=== PATIENT | male | born 1960 | race Caucasian/White ===

== ENCOUNTER 2020-12-09 07:38 | Day surgery (SDC) | payer BC ==
[2020-12-04 12:24] VITALS: BMI 29.9
[~2020-12-09 07:38] MED LIST: DEXAMETHASONE SOD PHOSPHATE 4 MG/ML 1 ML VIAL IV ONE; DEXAMETHASONE SOD PHOSPHATE 4 MG/ML 1 ML VIAL IV PRN; FAMOTIDINE 20 MG/2 ML VIAL IV PRN; HYDROmorphone 0.5 MG/0.5 ML SYRINGE IVP PRN; LACTATED RINGERS 1,000 ML IV SCH; LIDOCAINE 1% (10MG/ML) FOR IV START INTRADERMA PRN; MIDAZOLAM 2 MG/2 ML VIAL IV PRN; ONDANSETRON 4 MG/2 ML VIAL IVP ONE; ONDANSETRON 4 MG/2 ML VIAL IVP PRN
[2020-12-09] MEDS: OXYMETAZOLINE 0.05% NASL SPRAY 1 SPRAY BOTTLE EA NOSTRIL PRN ×6 (08:05→08:25)
[2020-12-09] MEDS ORDERED: fentaNYL (PF) 50 MCG/ML 2 ML AMP ONE (09:14)
[2020-12-09] MEDS ORDERED: MIDAZOLAM 2 MG/2 ML VIAL ONE (09:14)
[2020-12-09] MEDS ORDERED: ROCURONIUM 10 MG/ML (5 ML VIAL) IV ONE (09:14)
[2020-12-09] MEDS ORDERED: LIDOCAINE 1% INJ 10MG/ML (20 ML MDV) ONE (09:14)
[2020-12-09] MEDS ORDERED: ePHEDrine SULFATE/0.9% NACL/PF 50 MG/5 ML SYRINGE IV ONE (09:14)
[2020-12-09] MEDS ORDERED: PHENYLEPHRINE-0.9% NACL SYG 1,000 MCG/10 ML SYRINGE ONE (09:14)
[2020-12-09] MEDS ORDERED: PROPOFOL 10 MG/ML 20 ML VIAL IV ONE (09:14)
[2020-12-09] MEDS ORDERED: NEOSTIGMINE 1 MG/ML 10 ML VIAL ONE (09:14)
[2020-12-09] MEDS ORDERED: GLYCOPYRROLATE 0.2 MG/ML 2 ML VIAL ONE (09:14)
[2020-12-09] MEDS ORDERED: SUCCINYLCHOLINE CHLORIDE 100 MG/5 ML SYR IV ONE (09:14)
[2020-12-09] MEDS ORDERED: LIDOCAINE 1%-EPI 1:100,000 20 ML VIAL SUBMUCOSAL ONE ×2 (09:34)
[2020-12-09] MEDS ORDERED: BACITRACIN ZINC 500 UNIT/GM OINT 28.4 GM TUBE TOPICAL ONE (09:41)
--- NOTE | 2020-12-09 10:47 | P.OP ---
Date of Procedure: 12/09/20 Preoperative Diagnosis: Deviated nasal septum Inferior turbinate hypertrophy Chronic sinusitis Postoperative Diagnosis: Same Procedure(s) Performed: Septoplasty Outfracture and submucous resection of the inferior turbinates Bilateral endoscopic sinus surgery including bilateral maxillary antrostomy with removal of tissue from the maxillary sinuses, bilateral anterior and posterior ethmoidectomy, bilateral frontal sinusotomy with removal of tissue from the frontal sinuses and exploration and bilateral sphenoidotomy with removal of tissue from the sphenoid sinuses and exploration Anesthesia: CRISTOA Surgeon: Tico Kim Estimated Blood Loss (ml): 10 Pathology: other (Nasal septal bone and cartilage, sinus contents) Condition: stable Disposition: PACU Indications for Procedure: The 60-year-old white male whose had difficulties with chronic nasal airway obstruction nasal congestion and recurrent and chronic sinusitis with CT evidence of chronic sinusitis Operative Findings: Septum deviated to the left anteriorly to the right posteriorly, inferior turbinate hypertrophy bilaterally, small cysts in the maxillary sinuses bilaterally with obstruction of the maxillary sinus ostia, diffuse mucosal thickening in the ethmoid frontal and sphenoid sinuses Description of Procedure: The patient was brought into the operative suite and placed in a supine position. The patient underwent induction of general anesthesia with oral endotracheal intubation without difficulty. The patient was prepped and draped in the usual aseptic fashion with the orbits in the operating field for monitoring to the case and the computed tomography scan was on the computer screen for review throughout the case. 1% lidocaine with 1 :100,000 epinephrine was infused submucosally into both sides of the nasal septum as well as the lateral nasal wall and anterior tips of the middle turbinates. While this was taking vasoconstrictive effect the inferior turbinates were infractured with Labette elevator and partial submucous resection of the inferior turbinates was performed with a portion of the submucosal soft tissue and the inferior turbinate bone removed with Coblation device this therefore remove/ablated a portion of the inferior turbinate soft tissue and the inferior turbinate bone-. The inferior turbinates were then outfractured with the Labette elevator. A left hemitransfixion incision was then made with the mucoperichondrial and mucoperiosteal flap on the left elevated. The bony cartilaginous junction was disarticulated and the mucoperiosteal flap on the right was elevated. Bony nasal septal deformities were removed with Jared forceps and an inferior cartilaginous strip was removed leaving a full 1.5 cm caudal strut. Checking intranasally this corrected the nasoseptal deformities and the hemitransfixion incision was closed with a running 4-0 chromic suture. Full 0 endoscopic examination is performed bilaterally. Beginning on the left, the middle turbinate was medialized. The maxillary ostium was located w ith a ballpoint probe and an infundibulotomy was performed followed by uncinectomy. The maxillary antrostomy was enlarged at the expense of the anterior and posterior fontanelle taking care anteriorly not to injure the lacrimal bone. The maxillary sinus was evaluated with 30 and 70 endoscope .[Abnormal appearing tissue was removed from the maxillary sinus-there were small polyps noted]. Anterior and posterior ethmoidectomy were then performed from anterior to posterior to the level of the skull base. The roof of the anterior ethmoid air cells were then cleaned from posterior to anterior using up-biting Blakesley forceps. The frontal sinus ostium was opened with up-biting Blakesley forcep and curved suction and also entellus balloon sinus plasty. The frontal sinus was then explored with 30 endoscope.[Abnormal tissue was removed from the frontal sinus-there was thickened mucosa noted]. The sphenoid ostium was located with a straight suction and endoscope and was then opened with sinus explored. The sphenoid sinus was then explored with 0 endoscope. Thickened mucosa was noted that was also removed at the. Attention was then turned to the right where the procedures were followed as they had been on the left. [ standard and firm Nasopore nasal dressing was placed in the middle meatus bilaterally under direct visualization]. Bilateral Yoon airway splints coated with bacitracin ointment were placed and sutured transseptally with a 4-0 nylon suture. The patient was suctioned in oral gastric fashion and was allowed to emerge from general anesthesia having tolerated procedure well and was extubated in the operating suite and transferred to the postoperative recovery area in satisfactory condition.
[2020-12-09] MEDS ORDERED: LACTATED RINGERS 1,000 ML IV ONE (10:50)
[2020-12-09 11:02] VITALS: TEMP 97.1
[2020-12-09] MEDS ORDERED: HYDROcodone/APAP 5-325MG 1 EACH TAB ONE (12:18)
[2020-12-09] MEDS ORDERED: HYDROcodone/APAP 5-325MG 1 EACH TAB PO ONE (12:23)
[2020-12-09 12:49] VITALS: RESP 20
[2020-12-09 13:52] VITALS: BP 149/78; PULSE 90
== END 2020-12-09 13:52 | disposition home or self-care (01) ==
LOC: OR 07:38
PROVIDERS: ATTEND Otolaryngology
DX: J34.2 Deviated nasal septum (principal); J32.9 Chronic sinusitis, unspecified; J34.3 Hypertrophy of nasal turbinates; Z80.0 Family history of malignant neoplasm of digestive organs; Z83.49 Family history of other endocrine, nutritional and metabolic diseases; Z87.891 Personal history of nicotine dependence; Z79.899 Other long term (current) drug therapy
CPT/HCPCS: 88305; 88300; 30520; 31267; 31253; 31259; C1726; J2250; J1100; J2710; J2405; J0690; J2001; J3010; J2370; J0330; J2704; J1170